=== PATIENT | female | born 1935 | race Caucasian/White ===

== ENCOUNTER 2020-02-28 06:10 | Day surgery (SDC) | payer MEDICARE, OTHER ==
[~2020-02-28] VITALS: Ht 157.5 cm; Wt 50.0 kg
[2020-02-28] VITALS (7 sets, daily range): BP systolic 120–178; BP diastolic 56–82
[~2020-02-28 06:10] MED LIST: CALC-965 PO; HYDR-4383 PO; LEVO75TA56 PO; LOSA50TA64 PO; METO50TA17 PO; NITR100C6 PO; OMEP40CA13 PO; WARF1TAB83 PO
[2020-02-28] MEDS ORDERED: levoFLOXACIN-Levaquin 500mg/D5 100 ML IV ONE (06:25)
[2020-02-28] MEDS ORDERED: fentaNYL/PF 50MCG/1 ML 2ML syringe ONE (06:25)
[2020-02-28] MEDS ORDERED: LIDOcaine Viscous 15ml cup ONE (06:25)
[2020-02-28] MEDS ORDERED: MIDAZolam 5mg/5ml vial ONE (06:25)
[2020-02-28] MEDS ORDERED: diphenhydrAMINE 50 mg/ml inj ONE (06:25)
[2020-02-28] MEDS ORDERED: iohexol 300 MG/1 ML 50ml polymer ONE (06:26)
[2020-02-28] MEDS ORDERED: glucagon, human recombinant 1mg kit ONE ×2 (06:26)
== END 2020-02-28 09:35 | disposition home or self-care (01) ==
LOC: GI LAB 06:10
PROVIDERS: ATTEND Internal Medicine Gastroenterology
DX: Z46.59 Encounter for fitting and adjustment of other gastrointestinal appliance and device (principal); K80.50 Calculus of bile duct without cholangitis or cholecystitis without obstruction; I10 Essential (primary) hypertension; E03.9 Hypothyroidism, unspecified; Z96.653 Presence of artificial knee joint, bilateral; Z86.711 Personal history of pulmonary embolism; Z86.718 Personal history of other venous thrombosis and embolism; Z79.899 Other long term (current) drug therapy; Z88.0 Allergy status to penicillin; Z88.1 Allergy status to other antibiotic agents
CPT/HCPCS: 43264; 43275; 99153; C1769; C1773; G0500; J1200; J1610; J1956; J2250; J3010; J7040; Q9967; 99152; A4620

== ENCOUNTER → 2020-06-11 | Day surgery (SDC) | payer MEDICARE, OTHER ==
[2020-06-05 16:23] LABS: CLARITY,URINE CLOUDY (Clear); COLOR,URINE YELLOW (Yellow); GLUCOSE, URINE NEGATIVE (Neg); KETONES,URINE NEGATIVE (Neg); LEUKOCYTE ESTERASE ,URINE LARGE (Neg); NITRITES, URINE NEGATIVE (Neg); OCCULT BLOOD,URINE TRACE-INTACT (Neg); PH,URINE 6.5 (4.8-8.0); PROTEIN,URINE NEGATIVE (Neg); UROBILINOGEN,URINE 0.2 E.U/dL (0.2-1.0)
[2020-06-05 16:26] LABS: BASOPHILS # (AUTO) 0.1 X10'3 (0-0.2); BASOPHILS % (AUTO) 0.7 % (0-1); EOSINOPHILS # (AUTO) 0.2 X10'3 (0-0.9); EOSINOPHILS % (AUTO) 2.2 % (0-6); LYMPHOCYTES # (AUTO) 2.2 X10'3 (1.1-4.8); LYMPHOCYTES % (AUTO) 29.5 % (21-51); MEAN CORPUSCULAR HEMOGLOBIN 30.8 PG (27.0-31.0); MEAN CORPUSCULAR HGB CONC 33.7 g/dL (33.0-36.5); MEAN CORPUSCULAR VOLUME 91.3 FL (78-98); MEAN PLATELET VOLUME 8.4 FL (7.4-10.4); MONOCYTES # (AUTO) 0.5 X10'3 (0-0.9); MONOCYTES % (AUTO) 7.3 % (2-12); NEUTROPHILS # (AUTO) 4.5 X10'3 (1.8-7.7); NEUTROPHILS % (AUTO) 60.3 % (42-75); PRE OP HEMATOCRIT 38.1 % (35.0-45.0); PRE OP HEMOGLOBIN 12.8 g/dL (12.0-16.0); PRE OP PLATELET COUNT 250 X10'3 (140-440); RED BLOOD COUNT 4.17 X10'6 (4.20-5.60); RED CELL DISTRIBUTION WIDTH 14.6 % (11.5-14.5)
[2020-06-05 16:28] LABS: UA COLLECTION TYPE NON-SPECIFIED
[2020-06-05 16:29] LABS: SQUAMOUS EPITHELIAL CELL,UR FEW /LPF (FEW); WBC,URINE TNTC /HPF (0-4)
[2020-06-05 16:30] LABS: BACTERIA,URINE 2+ /HPF (Neg)
[2020-06-05 16:43] LABS: ALBUMIN 3.6 G/DL (3.4-5.0); ALBUMIN/GLOBULIN RATIO 0.9 (1.1-1.5); ALKALINE PHOSPHATASE 135 IU/L (46-116); BLOOD UREA NITROGEN 19 MG/DL (7-18); BUN/CREATININE RATIO 24.1 (6.6-38.0); CALCIUM 9.1 MG/DL (8.5-10.1); CHLORIDE 103 MMOL/L (99-107); CREATININE 0.79 MG/DL (0.40-0.90); PRE OP ALT 19 U/L (30-65); PRE OP ANION GAP 7 (8-16); PRE OP AST 20 U/L (10-37); PRE OP BILIRUB, TOTAL 0.4 MG/DL (0.0-1.0); PRE OP GLUCOSE 100 MG/DL (70-104); PRE OP SODIUM 139 MMOL/L (135-145); TOTAL CARBON DIOXIDE 29.4 MMOL/L (24-32); TOTAL PROTEIN 7.6 G/DL (6.4-8.2); eGFR 69 ML/MIN
[2020-06-11] VITALS (12 sets, daily range): BP systolic 132–172; BP diastolic 56–91
[~2020-06-11] VITALS: Ht 160 cm; Wt 51.0 kg
[~2020-06-11] MED LIST changes: +BUPIVAcaine/PF 2.5 mg/ml (0.25%) 30ml vial ONE; +DOCUMENT DATE & TIME OF BETA-BLOCKER PO ONE; -HYDR-4383 PO; +HYDROcodone/acetaminophen 10/325mg tab PO ONE; +LIDOcaine 1%/PF 5ML 10 MG/ML VIAL ONE; -NITR100C6 PO; -OMEP40CA13 PO; +acetaminophen 1,000mg/100ml IV 100 ML IV ONE; +clindamycin-Cleocin 900mg/D5W 50 ML IV ONE; +desflurane 240ml liquid inh. IH ONE; +dexamethasone sod phosphate 10mg/ml inj ONE; +famotidine 20mg tablet PO ONE; +fentaNYL/PF 50MCG/1 ML 2ML syringe ONE; +glycopyrrolate 0.2mg/ml inj ONE; +meperidine/PF 25mg/ml syringe IV PRN; +midazolam 2 mg/2 ml injection ONE; +morphine 2 MG/ML inj. syringe IV PRN; +morphine 4 MG/ML inj SYRINge IV PRN; +neostigmine methylsulfate 1 MG/ML 10ml vial ONE; +ondansetron/PF 4mg/2ml inj IV PRN; +ondansetron/PF 4mg/2ml inj ONE; +proCHLORperazine 10 MG/2 ml inj IV PRN; +propofol inj 20 ML IV ONE; +ringers solution, lacted 1,000 ML IV SCH; +rocuronium 10mg/ml inj IV ONE
[2020-06-11 12:46] LABS: PRE OP PARTIAL THROMB. TIME 29 SECONDS (22-32)
--- NOTE | 2020-06-11 16:50 | NUR ---
Received from OR via [facility], accompanied by Anesthesiologist DR DE LUNA and report given by Anesthesiolgist. PATIENT WAKING UP, DENIES PAIN, V/S WNL, NEUROVASCULAR CHECKS INTACT, 20G PIV LT FA, SCD ON, DERMABOND TO LAP SIGHTS OF ABDOMEN CDI. ADB SOFT/NONDISTENDED Addendum: 06/11/20 at 1709 by Helena Smalls RN Amended: Links added.
--- NOTE | 2020-06-11 18:40 | NUR ---
STATES DECREASING PAIN LEVEL. STATES READINESS TO DC HOME WHEN ASKED. PER DR MCPHERSON, OKAY TO DC HOME WITHOUT VOIDING - PT DENIES URGE TO VOID. JACKELYN PO FLUIDS. ABD DSG CDI. ABD SOFT/NONDISTENDED. IV DC'D WITH CANNULA INTACT AND DSG APPLIED. DC VIA WC WITH ALL PERSONAL BELONGINGS TO PVT AUTO WITH HELENA TO RECEIVE PT Addendum: 06/11/20 at 1852 by Helena Smalls RN Amended: Links added.
== END | disposition home or self-care (01) ==
LOC: PAS 11:07
PROVIDERS: ATTEND Surgery
DX: K43.9 Ventral hernia without obstruction or gangrene (principal); I10 Essential (primary) hypertension; Z20.828 Contact with and (suspected) exposure to other viral communicable diseases; Z87.440 Personal history of urinary (tract) infections; Z88.8 Allergy status to other drugs, medicaments and biological substances; Z88.6 Allergy status to analgesic agent; Z98.890 Other specified postprocedural states; Z90.49 Acquired absence of other specified parts of digestive tract; Z90.710 Acquired absence of both cervix and uterus; Z96.651 Presence of right artificial knee joint; Z98.49 Cataract extraction status, unspecified eye; Z85.828 Personal history of other malignant neoplasm of skin; Z79.899 Other long term (current) drug therapy
CPT/HCPCS: 36415; 49652; 80053; 81001; 82948; 85025; 85610; 85730; 87088; 87635; 93005; C1758; C1781; J0131; J1100; J2250; J2405; J2704; J2710; J3010; J3490; J7120; A4215; A4618

== ENCOUNTER 2022-09-28 13:12 | Day surgery (SDC) | payer MEDICARE, BC ==
[2022-09-24 11:55] LABS: BASOPHILS % (AUTO) 0.6 % (0-1); EOSINOPHILS % (AUTO) 0.6 % (0-6); HEMATOCRIT 31.8 % (35.0-45.0); HEMOGLOBIN 10.4 g/dl (12.0-16.0); LYMPHOCYTES # (AUTO) 0.9 X10'3 (1.1-4.8); LYMPHOCYTES % (AUTO) 16.3 % (21-51); MEAN CORPUSCULAR HEMOGLOBIN 31.4 PG (27.0-31.0); MEAN CORPUSCULAR HGB CONC 32.7 g/dL (33.0-36.5); MEAN PLATELET VOLUME 7.4 FL (7.4-10.4); MONOCYTES # (AUTO) 0.3 X10'3 (0-0.9); NEUTROPHILS # (AUTO) 4.3 X10'3 (1.8-7.7); NEUTROPHILS % (AUTO) 76.5 % (42-75); PLATELET COUNT 277 X10'3 (140-440); RED BLOOD COUNT 3.31 X10'6 (4.20-5.60); RED CELL DISTRIBUTION WIDTH 20.1 % (11.5-14.5); WHITE BLOOD COUNT 5.7 X10'3 (4.5-11.0)
[2022-09-24 12:06] LABS: ALBUMIN 3.3 G/DL (3.4-5.0); ANION GAP 12 (8-16); APTT 46 SECONDS (22-32); BLOOD UREA NITROGEN 25 MG/DL (7-18); BUN/CREATININE RATIO 30.9 (10.0-20.0); CALCIUM 8.9 MG/DL (8.5-10.1); CHLORIDE 103 MMOL/L (99-107); CHOL/HDL RATIO 2.2 (0.00-4.99); CHOLESTEROL 132 MG/DL (0-200); CREATININE 0.81 MG/DL (0.40-0.90); GLUCOSE 79 MG/DL (70-104); HDL CHOLESTEROL 60 MG/DL (35-60); LDL CHOLESTEROL 60 MG/DL (50-100); POTASSIUM 4.4 MMOL/L (3.5-5.1); SODIUM 134 MMOL/L (135-145); TOTAL CARBON DIOXIDE 19.2 MMOL/L (24-32); TRIGLYCERIDES 77 MG/DL (20-135); eGFR 67 ML/MIN
[2022-09-24 15:02] LABS: ANISOCYTOSIS 3+; BURR CELLS 2+; PLATELET ESTIMATE NORMAL; SCHISTOCYTES FEW
[2022-09-28] VITALS (9 sets, daily range): BP systolic 99–136; BP diastolic 56–77
[~2022-09-28] VITALS: Ht 157.5 cm; Wt 44.7 kg
[~2022-09-28 13:12] MED LIST changes: -BUPIVAcaine/PF 2.5 mg/ml (0.25%) 30ml vial ONE; -DOCUMENT DATE & TIME OF BETA-BLOCKER PO ONE; -HYDROcodone/acetaminophen 10/325mg tab PO ONE; -LIDOcaine 1%/PF 5ML 10 MG/ML VIAL ONE; -acetaminophen 1,000mg/100ml IV 100 ML IV ONE; -clindamycin-Cleocin 900mg/D5W 50 ML IV ONE; -desflurane 240ml liquid inh. IH ONE; -dexamethasone sod phosphate 10mg/ml inj ONE; -famotidine 20mg tablet PO ONE; -fentaNYL/PF 50MCG/1 ML 2ML syringe ONE; -glycopyrrolate 0.2mg/ml inj ONE; -meperidine/PF 25mg/ml syringe IV PRN; -midazolam 2 mg/2 ml injection ONE; -morphine 2 MG/ML inj. syringe IV PRN; -morphine 4 MG/ML inj SYRINge IV PRN; -neostigmine methylsulfate 1 MG/ML 10ml vial ONE; -ondansetron/PF 4mg/2ml inj IV PRN; -ondansetron/PF 4mg/2ml inj ONE; -proCHLORperazine 10 MG/2 ml inj IV PRN; -propofol inj 20 ML IV ONE; -ringers solution, lacted 1,000 ML IV SCH; -rocuronium 10mg/ml inj IV ONE
[2022-09-28] MEDS ORDERED: FURO20TA4 PO (13:43)
[2022-09-28] MEDS ORDERED: ENOXAPARIN 60 MG (13:43)
[2022-09-28] MEDS ORDERED: LOSA25TA41 PO (13:43)
[2022-09-28] MEDS ORDERED: ACET-2971 PO (13:44)
[2022-09-28] MEDS ORDERED: diphenhydrAMINE 25mg capsule PO PRN (13:50)
[2022-09-28] MEDS ORDERED: normal saline 1,000 ML IV SCH (13:50)
[2022-09-28] MEDS ORDERED: LORazepam 0.5 MG tablet PO PRN (13:50)
[2022-09-28] MEDS ORDERED: fentaNYL/PF 50MCG/1 ML 2ML syringe ONE (15:10)
[2022-09-28] MEDS ORDERED: verapamil 2.5 mg/ml inj IV ONE (15:10)
[2022-09-28] MEDS ORDERED: nitroGLYCERIN-Tridil 50MG/D5W 250 ML IV ONE (15:10)
[2022-09-28] MEDS ORDERED: midazolam 1 mg/ML 2ml injection ONE (15:10)
[2022-09-28] MEDS ORDERED: LIDOcaine 1% (10mg/ml) 2ml vial ONE (15:10)
[2022-09-28] MEDS ORDERED: heparin 1,000unit/ml 10ml vial 10 ML ONE (15:11)
[2022-09-28] MEDS ORDERED: iohexol 350MG/ML 100ml bottle IV ONE (15:11)
[2022-09-28] MEDS ORDERED: LIDOcaine 1% (10mg/ml)w/preservative inj. 20ml MDV ONE (16:26)
--- NOTE | 2022-09-28 17:15 | NUR ---
placed f/c without any difficulty, 300 cc in bag after sykes placed.
[2022-09-28] MEDS ORDERED: HYDROcodone/acetaminophen 5mg/325mg tablet PO PRN (17:55)
[2022-09-28] MEDS ORDERED: HYDROcodone/acetaminophen 10/325mg tab PO PRN (17:55)
--- NOTE | 2022-09-28 19:30 | NUR ---
removed f/c without any difficulty, pt voided after f/c removed.
[2022-09-29 07:09] LABS: ISTAT HGB ART 8.8 g/dl (12.0-16.0); ISTAT Hct ART 26 %PCV (35-45); ISTAT Hct MIX 27 %PCV (35-45); ISTAT O2 SATURATION ARTERIAL 96 % (95-98); ISTAT O2 SATURATION MIX VENOUS 65 % (60-80); ISTAT SOURCE BLNK
== END 2022-09-28 20:10 | disposition home or self-care (01) ==
LOC: SSTAY O 13:12
PROVIDERS: ATTEND Student in an Organized Health Care Education/Training Program
DX: I35.0 Nonrheumatic aortic (valve) stenosis (principal); I10 Essential (primary) hypertension; E78.5 Hyperlipidemia, unspecified; E03.9 Hypothyroidism, unspecified; Z86.711 Personal history of pulmonary embolism; Z79.899 Other long term (current) drug therapy; Z88.5 Allergy status to narcotic agent; Z88.0 Allergy status to penicillin; Z88.1 Allergy status to other antibiotic agents; Z79.01 Long term (current) use of anticoagulants
CPT/HCPCS: 36415; 80048; 80061; 82803; 85014; 85025; 85610; 85730; 93005; 93456; 99152; C1769; C1894; J1644; J2250; J3010; J3490; J7030; Q0163; Q9967; 85008; 99153; A4615; A6258; A6402; C1751

== ENCOUNTER 2022-10-08 13:00 | Outpatient (CLI) | payer MEDICARE, BC ==
[~2022-10-08 13:00] MED LIST changes: +ACET-2971 PO; -CALC-965 PO; +ENOXAPARIN 60 MG; +FURO20TA4 PO; +LOSA25TA41 PO; -LOSA50TA64 PO
[2022-10-08 13:40] LABS: BASOPHILS # (AUTO) 0.1 X10'3 (0-0.2); EOSINOPHILS # (AUTO) 0.1 X10'3 (0-0.9); EOSINOPHILS % (AUTO) 1.1 % (0-6); HEMATOCRIT 31.3 % (35.0-45.0); HEMOGLOBIN 10.1 g/dl (12.0-16.0); LYMPHOCYTES # (AUTO) 1.4 X10'3 (1.1-4.8); LYMPHOCYTES % (AUTO) 19.8 % (21-51); MEAN CORPUSCULAR HEMOGLOBIN 31.6 PG (27.0-31.0); MEAN CORPUSCULAR HGB CONC 32.4 g/dL (33.0-36.5); MEAN CORPUSCULAR VOLUME 97.7 FL (78-98); MEAN PLATELET VOLUME 7.5 FL (7.4-10.4); MONOCYTES # (AUTO) 0.4 X10'3 (0-0.9); NEUTROPHILS # (AUTO) 5.2 X10'3 (1.8-7.7); NEUTROPHILS % (AUTO) 72.1 % (42-75); PLATELET COUNT 302 X10'3 (140-440); RED BLOOD COUNT 3.21 X10'6 (4.20-5.60); RED CELL DISTRIBUTION WIDTH 20.8 % (11.5-14.5); WHITE BLOOD COUNT 7.2 X10'3 (4.5-11.0)
[2022-10-08 13:53] LABS: APTT 33 SECONDS (22-32)
[2022-10-08 14:01] LABS: ALANINE AMINOTRANSFERASE 14 U/L (12-78); ALBUMIN 3.4 G/DL (3.4-5.0); ALKALINE PHOSPHATASE 70 IU/L (46-116); ANION GAP 10 (8-16); ASPARTATE AMINO TRANSFERASE 15 U/L (10-37); BILIRUBIN,TOTAL 0.5 MG/DL (0.1-1.0); BLOOD UREA NITROGEN 27 MG/DL (7-18); BUN/CREATININE RATIO 28.4 (10.0-20.0); CALCIUM 8.7 MG/DL (8.5-10.1); CHLORIDE 106 MMOL/L (99-107); CREATININE 0.95 MG/DL (0.40-0.90); GLUCOSE 103 MG/DL (70-104); POTASSIUM 4.5 MMOL/L (3.5-5.1); SODIUM 140 MMOL/L (135-145); TOTAL CARBON DIOXIDE 23.9 MMOL/L (24-32); TOTAL PROTEIN 6.7 G/DL (6.4-8.2); eGFR 55 ML/MIN
[2022-10-08 14:03] LABS: ANISOCYTOSIS 3+; PLATELET ESTIMATE NORMAL
[2022-10-08 14:04] LABS: ELLIPTOCYTES 1+
[2022-10-08 14:05] LABS: ACANTHOCYTES 1+; SCHISTOCYTES FEW
== END 2022-10-08 23:59 | disposition home or self-care (01) ==
LOC: 64 CT 13:00
PROVIDERS: ATTEND Internal Medicine Cardiovascular Disease
DX: Z01.818 Encounter for other preprocedural examination (principal); I70.0 Atherosclerosis of aorta; J98.4 Other disorders of lung; M47.814 Spondylosis without myelopathy or radiculopathy, thoracic region; I35.0 Nonrheumatic aortic (valve) stenosis; R06.02 Shortness of breath; I65.29 Occlusion and stenosis of unspecified carotid artery; Z79.01 Long term (current) use of anticoagulants; Z79.899 Other long term (current) drug therapy
CPT/HCPCS: 36415; 71046; 80053; 83880; 85008; 85025; 85610; 85730; 94010; 94727; 94729

== ENCOUNTER 2022-10-12 11:44 | Outpatient (CLI) | payer MEDICARE, BC ==
[2022-10-12] MEDS ORDERED: IODIXANOL 320 MG/ML INFUS..BTL 100ML IV ONE (12:03)
== END 2022-10-12 23:59 | disposition home or self-care (01) ==
LOC: RAD 11:44
PROVIDERS: ATTEND Internal Medicine Cardiovascular Disease
DX: K57.30 Diverticulosis of large intestine without perforation or abscess without bleeding (principal); I35.0 Nonrheumatic aortic (valve) stenosis; R06.02 Shortness of breath; I65.29 Occlusion and stenosis of unspecified carotid artery; I70.0 Atherosclerosis of aorta; I70.8 Atherosclerosis of other arteries; K31.89 Other diseases of stomach and duodenum; K59.00 Constipation, unspecified; K46.9 Unspecified abdominal hernia without obstruction or gangrene; M47.817 Spondylosis without myelopathy or radiculopathy, lumbosacral region
CPT/HCPCS: 71275; 74174; J3490; Q9967

== ENCOUNTER 2022-10-18 13:58 | Emergency (ER) | payer MEDICARE, BC ==
[~2022-10-18] VITALS: Ht 154.9 cm; Wt 44.5 kg
[2022-10-18 14:10] VITALS: BP 142/55
[2022-10-18 14:55] LABS: CLARITY,URINE CLOUDY (Clear); COLOR,URINE YELLOW (Yellow); GLUCOSE, URINE NEGATIVE (Neg); KETONES,URINE NEGATIVE (Neg); LEUKOCYTE ESTERASE ,URINE LARGE (Neg); NITRITES, URINE POSITIVE (Neg); OCCULT BLOOD,URINE MODERATE (Neg); PROTEIN,URINE 100 mg/dl (Neg); UROBILINOGEN,URINE 0.2 E.U/dL (0.2-1.0)
[2022-10-18 15:10] LABS: UA COLLECTION TYPE CLN CATCH MIDSTREAM
[2022-10-18 15:11] LABS: BACTERIA,URINE 4+ /HPF (Neg); SQUAMOUS EPITHELIAL CELL,UR NONE SEEN /LPF (FEW); WBC,URINE TNTC /HPF (0-4)
[2022-10-18] MEDS ORDERED: CEPH-585 PO ×2 (15:51)
[2022-10-18] MEDS ORDERED: phenazopyridine 100mg tablet PO ONE (15:53)
[2022-10-18] MEDS ORDERED: cephalexin 250mg capsule PO ONE (15:54)
[2022-10-20] MEDS ORDERED: LOPE-190 PO (13:25)
== END 2022-10-18 17:02 | disposition home or self-care (01) ==
LOC: ER 13:58
DX: N39.0 Urinary tract infection, site not specified (principal); M25.462 Effusion, left knee
CPT/HCPCS: 73564; 81001; 87077; 87088; 87186; 99284